=== PATIENT | male | born 1975 | race African-American/Black ===

== ENCOUNTER 2017-02-05 03:11 | Inpatient (IN) ==
[2017-02-05] MEDS ORDERED: ZOFRAN IV ONE (03:14)
[2017-02-05] MEDS ORDERED: NS 1,000 ML IV ONE ×2 (03:14→06:48)
[2017-02-05 03:38] LABS: BASO% 0.1 % (0.0-0.8); EOS# 0.01 X1000 (0.0-0.7); EOS% 0.1 % (0.0-10.0); HEMATOCRIT 35.5 % (42.0-52.0); HEMOGLOBIN 12.5 g/dL (14.0-18.0); LYMPH# 1.07 X1000 (1.2-3.4); LYMPH% 15.2 % (20.5-51.1); MANUAL DIFF NEEDED? NO; MCH 33.3 PG (27-31); MCHC 35.2 g/dL (33-37); MCV 94.7 FL (81-99); MONO% 19.9 % (1.7-9.3); MPV 9.6 FL (7.4-10.4); NEUT% 64.7 % (42.2-75.2); PLT 154 X1000 (130-400); RBC 3.75 XMIL (4.7-6.1)
--- NOTE | 2017-02-05 03:39 | PROVIDER DOCUMENTATION ---
HPI-Abdominal Pain/GI Problem - General Chief Complaint: General Adult Stated Complaint: n/v Time Seen by Provider: 02/05/17 03:12 Source: patient, EMS Allergies/Adverse Reactions: Patient Allergies Allergy/AdvReac Type Severity Reaction Status Date / Time No Known Allergies Allergy Verified 12/07/15 21:54 Home Medications: Home Medication List Medication Instructions Recorded Confirmed Last Taken Type No Home Medications 11/08/12 12/07/15 Unknown History - History of Present Illness-ABD Nature of Presenting Problems: pt states he has been having problems with abdominal pain and vomiting for a month and that it has been getting worse and he has been having a hard time keeping anything down. He is still urinating without dysuria or fevers. He last had a BM 2 days ago and at times it has been black. He has vomited some blood at times but not today. He states he had been drink about a pint of alcohol a day but has not been doing that recently. He does smoke and denies NSAID's. or pepto bismol Review of Systems - Adult - REVIEW OF SYSTEMS - ADULT Constitutional: denies: chills, fever Eyes: denies: discharge Ears, Nose, Mouth & Throat: denies: ear pain, sinus problem, throat pain Cardiovascular: denies: chest pain, palpitations, syncope Respiratory: denies: cough, shortness of breath Gastrointestinal: reports: see HPI Genitourinary: denies: dysuria, flank pain Musculoskeletal: denies: back pain Integumentary: denies: rash Neurological: denies: headache/migraines, numbness, paresthesia Psychiatric: reports: no symptoms reported Endocrine: reports: no symptoms reported Hematologic/Lymphatic: reports: no symptoms reported Allergic/Immunologic: reports: no symptoms reported All Other Systems: Reviewed and Negative Past History - Adult - PAST MEDICAL HISTORY-ADULT Review of Records: reports: Old Records Reviewed, Nursing Assessment Review, Medications Reviewed, Social history reviewed & non-contributory. Major Childhood Illnesses: reports: denies history Psychiatric: reports: depression, other (alcoholism ) - PRIOR SURGERIES/PROCEDURES Surgical/Procedure History: reports: none - IMMUNIZATION STATUS Childhood Immunizations: See Nurse Assessment Flu Vaccine: See Nurse Assessment - FAMILY HISTORY Family History: reviewed, not pertinent - SOCIAL HISTORY Smoking: less than 1 pack/day Alcohol Use Frequency: every day Living Situation: alone Physical Exam-General - PHYSICAL EXAM-ADULT Initial Vital Signs Reviewed: Yes - CONSTITUTIONAL General Appearance: appears well, alert, no apparent distress - EYES Eyes: PERRL/EOMI. negative: scleral icterus - HEAD, EARS, NOSE, MOUTH & THROAT HENMT: normocephalic/atraumatic - NECK Neck: non-tender, full range of motion, supple, normal inspection - RESPIRATORY Respiratory: chest non-tender, lungs clear, normal breath sounds, no pleuratic chest pain, no respiratory distress, no accessory muscle use - CARDIOVASCULAR Cardiovascular: regular rate, rhythm, no murmur - GASTROINTESTINAL (ABDOMEN) Abdominal Exam: normal bowel sounds, soft, no organomegaly, no pulsatile mass, abdominal bruit, tenderness (mild epigastric). negative: non tender - MUSCULOSKELETAL Back Exam: normal inspection, no CVA tenderness, no vertebral tenderness - SKIN Integumentary: normal color, normal turgor, warm/dry - NEUROLOGIC Neurologic: grossly normal, no motor/sensory deficits - PSYCHIATRIC Psych/Mental Status: normal mood/affect, normal thought content, normal thought process, oriented x 3 Progress - PLAN OF CARE/RESULTS Progress/Plan/Lab Results: Vital Signs - 8 hr 02/05/17 03:22 Temperature 97.8 F Pulse Rate 98 H Respiratory Rate 18 Blood Pressure 135/89 O2 Sat by Pulse Oximetry 100 Orders Category Date Time Status CBC WITH ELECTRONIC DIFF [HEME] Stat Lab 02/05/17 03:17 Results CMP [COMPREHENSIVE METABOLIC PANEL] [CHEM] Stat Lab 02/05/17 03:17 Received ETOH [ALCOHOL BLOOD] Stat Lab 02/05/17 03:17 Received LIPASE [CHEM] Stat Lab 02/05/17 03:17 Received MAGNESIUM [CHEM] Stat Lab 02/05/17 03:17 Received 0.9% Sodium Chloride Inj [Ns] 1,000 ml Med 02/05/17 03:14 Active IV 999 mls/hr Ondansetron [Zofran] Med 02/05/17 03:14 Discontinued 4 mg IV NOW ONE Result Diagrams: 02/05/17 03:17 02/05/17 03:17 Departure - Departure Date of Disposition Decision: 02/05/17 Time of Disposition Decision: 04:24 DIAGNOSIS: Alcoholic gastritis Qualifiers: Chronicity: acute Gastritis bleeding: without bleeding Qualified Code(s): K29.20 - Alcoholic gastritis without bleeding Alcohol withdrawal seizure Qualifiers: Complication of substance-induced condition: uncomplicated Qualified Code(s): F10.230 - Alcohol dependence with withdrawal, uncomplicated Disposition: ADMITTED INPATIENT 09 Certified Medical Emergency: Emergent Condition: Fair - Critical Care Note This patient required my direct & personal management of CC.: No
[2017-02-05 03:56] LABS: AGAP 24; ALBUMIN 3.8 g/dL (3.5-5.0); ALKALINE PHOSPHATASE 320 U/L (32-122); BUN 5 mg/dL (8-22); CALCIUM 9.7 mg/dL (8.8-10.2); CHLORIDE 84 mmol/L (98-107); COSMO 267; GOT 185 U/L (10-34); GPT 88 U/L (10-44); LIPASE 18 U/L (13-60); MAGNESIUM 1.5 mg/dL (1.5-2.7); POTASSIUM 2.9 mmol/L (3.5-5.1); SODIUM 133 mmol/L (136-145); TCO2 25 mmol/L (25-35); TOTAL BILIRUBIN 3.38 mg/dL (0.20-1.00); TOTAL PROTEIN 7.7 g/dL (6.3-8.3)
[2017-02-05] MEDS ORDERED: ATIVAN ONE (03:57)
[2017-02-05] MEDS ORDERED: ATIVAN IV ONE (04:01)
[2017-02-05] MEDS ORDERED: M.V.I.-12 10 ML, FOLIC ACID 1 MG, MAGNESIUM SULFATE 1 GM, THIAMINE 100 MG in NS 1,000 ML IV ONE (04:02)
[2017-02-05] MEDS ORDERED: SODIUM CHLORIDE 0.9% INJ ONE (04:08)
[2017-02-05] MEDS ORDERED: PROTONIX IV ONE (04:08)
[2017-02-05] MEDS ORDERED: ATIVAN IV PRN (04:35)
--- NOTE | 2017-02-05 05:34 | Diag Imaging Result Doc PS360 ---
EXAM: HEAD W/O CONTRAST HISTORY: seizure TECHNIQUE: COMPARISON: None. FINDINGS: No parenchymal hemorrhage. No epidural or subdural hematoma. No subarachnoid hemorrhage. No mass identified on this noncontrasted exam. No hydrocephalus. Questionable mild atrophy. There is opacification of both maxillary sinuses. IMPRESSION: No hemorrhage. Chronic bilateral maxillary sinusitis. A preliminary report was given at 4:59 AM Electronically signed by Benny Le 02/05/2017 5:31 AM
[2017-02-05] MEDS ORDERED: ZOFRAN IV PRN (06:48)
--- NOTE | 2017-02-05 07:03 | HISTORY AND PHYSICAL ---
PRIMARY CARE DOCTOR: None. HISTORY OF PRESENT ILLNESS: This is a 41-year-old male with unremarkable past medical history who came to the emergency department complaining of epigastric pain, nausea and vomiting. He is a chronic alcohol abuser. He reports that during the last 2 weeks he was having on and off vomiting 2-3 times per day and he noticed the last week some blood on it. Also, he complains of epigastric pain, heartburn type that was also coming on and off for the last 2 weeks as well. He reports no fever, no chills. No diarrhea or constipation. While he was here he admits that the last time he drank was 2 days ago on Sunday and in the ER he had a seizures so he was given 2 mg of Ativan and that condition is controlled now. Patient is alert and oriented. He is going to be admitted to the hospital for further evaluation and treatment. PAST MEDICAL HISTORY: Alcohol abuse. PAST SURGICAL HISTORY: Right arm fracture with when he was a kid. ALLERGIES: No known drug allergies. SOCIAL HISTORY: He reports drinking 1 pint of liquor daily and he smokes half a pack of cigarettes per day. Denies using any illicit drugs. FAMILY HISTORY: Breast cancer in mother and diabetes in brothers and sisters. REVIEW OF SYSTEMS: 11 systems were reviewed and all symptoms are related to H P. PHYSICAL EXAMINATION: VITALS: Temperature 97.8, heart rate 91, respiratory rate 17, blood pressure 134/91. O2 saturation 100% on room air. GENERAL: This is a 41-year-old male, lying in bed, in no acute distress. HEENT: Head is normocephalic, atraumatic. Anicteric sclerae and pale conjunctivae. Mucous membranes moist. NECK: Supple. No JVD noted. No carotid bruits. No lymphadenopathy. No thyromegaly. CARDIOVASCULAR: S1 and S2 heard. No murmurs, gallops, or rubs. Regular rate and rhythm. RESPIRATORY: Clear bilaterally to auscultation. No work of breathing or using accessory muscles. ABDOMEN: Soft. Mildly tender to palpation in the epigastric area. No signs of peritoneal irritation. Bowel sounds present. No organomegaly. EXTREMITIES: No clubbing, cyanosis, or edema. Peripheral pulses present in both legs. Patient reports numbness in both feet. NEUROLOGICAL: Patient alert oriented x3. Moves 4 extremities. Cranial nerves 2-12 grossly normal. LABORATORY DATA: White cell count 7.02, hemoglobin 12.2, hematocrit 35.5, platelets 154,000 with BMP remarkable for potassium 2.9, and glucose 153, total bilirubin 3.38, AST 185,000, ALT 88 with alkaline phosphatase of 320. ASSESSMENT: 1. Alcohol withdrawal. 2. This patient is being admitted to the hospital for alcohol withdrawal. He had 1 episode of seizure here in the hospital. He received Ativan and that condition was controlled. A CT scan of the head was checked and returned normal. At this time, we are going to continue with aggressive fluid resuscitation, thiamine and folate will be provided, and we are going to send this patient to the intensive care unit. 3. Epigastric pain. GI bleeding. Patient reports that during the last couple weeks he has been vomiting on and of and he noticed some blood on it occasionally. Hemoglobin 12.2, so I think this patient is really having chronic gastritis because of alcohol consumption. At this point, I want to start this patient on Protonix 40 mg IV b.i.d. and we are going to consult GI, and because of abnormal liver function tests we are going to do an ultrasound of the abdomen. We are going to consult GI. 1. Hypokalemia. Probably definitely secondary to continued vomiting for last 2 weeks. We are going to supplement that and will check BMP tomorrow. 2. Further recommendations to follow according to the clinical situation with the patient. cc: Kwame Smart MD
[2017-02-05] MEDS: POTASSIUM CHLORIDE 60 MEQ in NS 500 ML IV SCH ×2 (07:54→14:21)
[2017-02-05] MEDS ORDERED: THIAMINE 100 MG in NS 50 ML IV SCH (08:00)
[2017-02-05] MEDS: LIBRIUM PO SCH ×3 (09:04→17:10)
[2017-02-05] MEDS: PROTONIX IV SCH ×2 (09:05→20:57)
[2017-02-05] MEDS: SODIUM CHLORIDE 0.9% INJ SCH ×2 (09:05→20:57)
[2017-02-05] MEDS ORDERED: POTASSIUM CHLORIDE 40 MEQ/SWI 40 MEQ/100 ML IVPB IV ONE (09:18)
--- NOTE | 2017-02-05 10:06 | PROGRESS NOTE ---
DATE: 02/05/2017 SUBJECTIVE: He appears comfortable. He was sleepy. He is having visual hallucinations by his report, but does not seem to have a visible tremor in his jaw, in his hand. OBJECTIVE: Vital signs: Temperature 98.8 degrees, pulse 80, respirations 20, blood pressure 123/81. HEENT: Pupils are equal and round. Lungs: Lungs are clear in all lung cutler. Cardiovascular: Regular rhythm and rate without murmur or S3. Abdomen: Soft. Skin: Warm and dry. Weight 167 pounds. LABS: From today, white count 7020, hematocrit 35, platelet count 154,000. Chemistry: Sodium 133, potassium 3.9, chloride 84, bicarb 25, BUN 5. Magnesium was 1.5. We will supplement the potassium. CT of his head done this morning no hemorrhage. Chronic bilateral maxillary sinusitis. ASSESSMENT/PLAN: 1. A 41-year-old with unremarkable past medical history came to the emergency department with epigastric pain, nausea, vomiting, and chronic alcohol abuse. Drinks over a pint a day. The last 2 weeks he is having on and off vomiting 2-3 times a day. Complains of epigastric pain, heartburn, and stools were dark but not black. Here for abdominal pain. GI is consulted. Hematocrit and hemoglobin looked good. He is on a proton pump inhibitor. Will keep him on clear liquids. 2. Alcohol withdrawal. Go through delirium tremens. He is on thiamine and folate and will supplement his potassium. 3. Hypokalemia. Supplement potassium. Review orders. He is taking Librium 50 mg p.o. t.i.d. He is on Ativan p.r.n. 1-2 mg IV q. hour. Give multivitamin with thiamine and one thiamine every day 100 mg. We will supplement his potassium. Magnesium looked good. cc: Jose Lamar MD
[2017-02-05] MEDS: NS 1,000 ML IV SCH ×3 (10:41→23:19)
--- NOTE | 2017-02-05 11:26 | Diag Imaging Result Doc PS360 ---
EXAM: US ABDOMEN-COMPLETE HISTORY: alcohol abuse TECHNIQUE: COMPARISON: None. FINDINGS: The proximal and mid aorta are normal. The distal aorta is obscured. There is fatty infiltration of the liver. Normal right kidney. No hydronephrosis. The common bile duct measures 4 mm. Normal gallbladder. No stones. Spleen is not enlarged. Normal left kidney. No hydronephrosis. Normal pancreatic head and body. Pancreatic tail is obscured. The inferior vena cava is poorly seen. IMPRESSION: Fatty infiltration of the liver. Electronically signed by Benny Le 02/05/2017 11:24 AM
[2017-02-05] MEDS: CARAFATE LIQUID PO SCH ×3 (11:59→20:03)
[2017-02-05] MEDS: M.V.I.-12 10 ML, FOLIC ACID 1 MG, MAGNESIUM SULFATE 1 GM, THIAMINE 100 MG in NS 1,000 ML IV SCH (12:00)
[2017-02-05 13:41] LABS: IRON SATURATION 51 %; TIBC 218 ug/dL; TOTAL IRON 111 ug/dL (53-167); UNBOUND IRON 107 ug/dL (112-346)
--- NOTE | 2017-02-05 16:23 | CONSULTATION ---
DATE OF CONSULTATION: 02/05/2017 REQUESTING PHYSICIAN: Dr. Domingo Lamar. PRIMARY CARE DOCTOR: None. REASON FOR CONSULTATION: Jaundice, elevated liver enzymes and vomiting blood. HISTORY OF PRESENT ILLNESS: Mr. Sterling is a 41-year-old male who was admitted on 02/05/2017 with symptoms of abdominal pain and epigastrium pain, along with nausea, vomiting, and vomiting blood yesterday once after eating his meal. According to the patient, he has been drinking heavily since age 15. He drinks about a half a pint of hard liquor almost every day. According to him, he has never had any liver issues before this time. He denies any previous history of any gallbladder problems. He denies any previous history of peptic ulcer disease. According to the patient, he has been having epigastric pain on and off for the last 2 weeks, along with intermittent nausea, vomiting. According to him, he ate his dinner yesterday, the day before admission and threw it right back up and on examining the vomitus, he saw some red blood mixed with the food. Since being in the hospital, he has been put on IV fluids, IV PPIs, IV multivitamin and oral Librax. He has not had any vomiting since admission. His hematocrit also was stable at 35%. He had last bowel movement 2 days ago which was dark in color per the patient. The patient has never had EGD done the past. He also admits that his last drink was 2 days ago on Sunday and in the ER he had a seizure, so he was given Ativan and this controlled. PAST MEDICAL HISTORY: Alcohol abuse. PAST SURGICAL HISTORY: Right arm fracture when he was a kid. ALLERGIES: No known drug allergies. SOCIAL HISTORY: He reports drinking 1 pint of liquor daily. He drinks hard liquor most days of the week. He smokes half a pack of cigarettes per day. No history of illicit drugs. 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 FAMILY HISTORY: No history of GI disorder in the family. He has history of breast cancer in mother and diabetes in brothers and sisters. REVIEW OF SYSTEMS: Denies any current fevers, rigors, chills, chest pain, shortness of breath, dyspnea. Denies any genitourinary complaints. Does have history of epigastric pain, nausea, vomiting and yellow urine and dark stools and vomiting blood. He has had a seizure in the ER which is controlled with medication. MEDICATIONS IN THE HOSPITAL: 1. Librax 50 mg p.o. t.i.d. 2. Potassium chloride. 3. Ativan 1-2 mg IV q.1 hour as needed. 4. IV fluids 150 mL/hour. 5. Zofran 4 mg IV every 4 hours as needed. 6. Protonix 40 mg IV b.i.d. 7. Thiamine 100 mg IV once daily. 8. Currently on clear liquid diet. PHYSICAL EXAMINATION: Vital signs: Temperature 98.8, pulse rate of 81, respiratory rate 20, blood pressure 123/81, saturating 90% on room air. Body weight of 167 pounds 2 ounces. BMI of 24 kg/m2. General Appearance: Moderately built, moderately nourished, lying in bed, in no acute distress. HEENT: Mild pallor. Icteric sclerae. Pupils equal, react to light. Neck: Supple. Chest: Decreased breath sounds. Cardiac: Regular rate and rhythm. No murmur. Abdomen: Mild discomfort periumbilical region. No rebound or guarding. Bowel sounds present. Extremities: No cyanosis, clubbing, edema. Neurologic: She is alert, awake, oriented. LABORATORY: Hemoglobin and hematocrit is 12.5 and 35.5, white count of 7.2, platelet count of 154,000, MCV of 94.7. Sodium 130, potassium 2.9, chloride of 84, bicarb 20, anion gap of 24, BUN of 5, creatinine 0.6, glucose of 153, calcium 9.7, magnesium 1.5, total bilirubin is 3.38. AST 185, ALT 88, alkaline phosphatase 320, total protein 7.7. Albumin of 3.8, lipase of 18. Plasma alcohol level 0. IMAGING: Head CT was done on 02/05/2017 which showed no hemorrhage. Chronic bilateral maxillary sinusitis. ALLERGIES: No known drug allergies. IMPRESSION AND PLAN: 1. Abdominal pain. Occasional nausea, vomiting, vomiting blood once at home. 2. Chronic alcohol abuse resulting in alcohol withdrawal seizure in the ER and currently on Ativan and Librax. 3. Watch for delirium tremens. 4. Elevated liver enzymes. Suspecting alcoholic liver disease. 5. Tobacco abuse. RECOMMENDATIONS: 1. We will continue patient on IV fluids, IV PPIs, IV antiemetics and IV multivitamin. We will start him on Carafate 1 g 6 hours liquid. 2. We will obtain ultrasound of the abdomen. 3. We will perform chronic liver disease workup and rule out possibility of acute hepatitis versus autoimmune disease. 4. We will schedule him for EGD tomorrow under anesthesia with Dr. Sullivan. The risks, benefits, indications of EGD were discussed with the patient and he understood. 5. We need to keep a close eye on the patient for delirium tremens. He has been a heavy alcohol drinker for many years. I have counseled the patient to quit drinking completely. I also counseled the patient to quit smoking completely. 6. Mild anemia. We will need to watch for now. 7. Further recommendations to follow. cc: MD Kwame Whiting MD MTDD
[2017-02-06] MEDS: CARAFATE LIQUID PO SCH ×4 (02:39→20:47)
[2017-02-06 05:10] LABS: MANUAL DIFF NEEDED? NO
[2017-02-06 05:18] LABS: BASO% 0.2 % (0.0-0.8); EOS# 0.05 X1000 (0.0-0.7); EOS% 1.2 % (0.0-10.0); HEMATOCRIT 30.9 % (42.0-52.0); HEMOGLOBIN 10.5 g/dL (14.0-18.0); IMM GRAN# 0.02 X1000 (0.0-0.04); IMM GRAN% 0.5 % (0.0-0.5); LYMPH# 0.96 X1000 (1.2-3.4); LYMPH% 23.3 % (20.5-51.1); MCH 32.3 PG (27-31); MCV 95.1 FL (81-99); MONO# 0.68 X1000 (0.11-0.59); MONO% 16.5 % (1.7-9.3); MPV 9.7 FL (7.4-10.4); NEUT% 58.3 % (42.2-75.2); PLT 137 X1000 (130-400); RBC 3.25 XMIL (4.7-6.1)
[2017-02-06 05:47] LABS: AGAP 14; ALBUMIN 2.9 g/dL (3.5-5.0); ALKALINE PHOSPHATASE 240 U/L (32-122); BUN 2 mg/dL (8-22); CALCIUM 8.1 mg/dL (8.8-10.2); CHLORIDE 100 mmol/L (98-107); COSMO 272; GOT 151 U/L (10-34); GPT 71 U/L (10-44); POTASSIUM 3.5 mmol/L (3.5-5.1); SODIUM 138 mmol/L (136-145); TCO2 24 mmol/L (25-35); TOTAL BILIRUBIN 2.98 mg/dL (0.20-1.00); TOTAL PROTEIN 5.9 g/dL (6.3-8.3)
[2017-02-06] MEDS: NS 1,000 ML IV SCH ×2 (06:10→18:04)
--- NOTE | 2017-02-06 07:23 | PROGRESS NOTE ---
DATE: 02/06/2017 SUBJECTIVE: Mr. Sterling had a pretty good night, but the nurse did state when he tried to get up, his legs were so weak, he fell down to his knees. He has no tremor. He states he has not had any more visual hallucinations. OBJECTIVE: Vital Signs: Temp 98.4 degrees, pulse 76, respirations 20, blood pressure 118/75. HEENT: Pupils are equal, round. Lungs: Clear in all lung cutler. Cardiovascular: Regular rhythm and rate, without murmur or S3. Abdomen: Soft. Skin: Warm and dry. Urine output is 8 L. Good urine output. LABORATORY DATA: Reviewed from this morning. White count 4120, hematocrit 30, platelet count 137,000. Chemistries: Sodium 138, potassium 3.5, chloride 100, bicarb 24, BUN 2, creatinine 0.5. Alkaline phosphate 240. His ALT has come down from 80 to 71, and AST from 185 to 151. ASSESSMENT AND PLAN: 1. Abdominal pain, occasional nausea and vomiting, and vomiting of blood at home. Continue intravenous fluids, multivitamin. He is on Carafate 1 gram every 6 hours and his proton pump inhibitor. 2. Will obtain an ultrasound of the abdomen, and will also check a hepatitis profile. 3. Suspect alcoholic hepatitis. Liver enzymes are coming down. 4. Alcohol withdrawal, delirium tremens. It seems to be getting a little better. 5. Generalized weakness. Will initiate physical therapy. 6. Mild anemia. Watch his hematocrit and hemoglobin. Will space out his Librium so he can have some at night. cc: Jose Lamar MD
[2017-02-06] MEDS ORDERED: ATIVAN IV ONE (08:24)
[2017-02-06] MEDS: THIAMINE 100 MG in NS 50 ML IV SCH (08:34)
[2017-02-06] MEDS: LIBRIUM PO SCH ×3 (08:34→20:47)
[2017-02-06] MEDS: SODIUM CHLORIDE 0.9% INJ SCH ×2 (08:34→21:42)
[2017-02-06] MEDS: PROTONIX IV SCH ×2 (08:34→21:42)
[2017-02-06] MEDS: M.V.I.-12 10 ML, FOLIC ACID 1 MG, MAGNESIUM SULFATE 1 GM, THIAMINE 100 MG in NS 1,000 ML IV SCH (09:29)
[2017-02-06 10:59] LABS: HEPATITIS PROFILE ACUTE SEE COMMENTS
[2017-02-06] MEDS: PHENOBARBITAL IV PRN ×2 (11:52→18:29)
[2017-02-06] MEDS: ATIVAN IV PRN ×9 (11:52→23:36)
[2017-02-06] MEDS ORDERED: DIPRIVAN 1% ONE ×2 (12:27→12:42)
[2017-02-06] MEDS ORDERED: XYLOCAINE-MPF 2% ONE (12:35)
--- NOTE | 2017-02-06 15:33 | OPERATIVE NOTE ---
PROCEDURE DATE: 02/06/2017 PROCEDURE: Esophagogastroduodenoscopy. PREOPERATIVE DIAGNOSES: 1. Nausea. 2. Vomiting. 3. Questionable coffee-grounds emesis. POSTOP DIAGNOSES: 1. Erosive antral gastritis. 2. Duodenitis. 3. No Cesia-Peña tear. 4. No esophageal varices. 5. No fresh or old blood seen in the stomach. DESCRIPTION OF PROCEDURE: After informed consent and adequate intravenous sedation by Anesthesia, the scope introduced in esophagus. The patient does not have any esophageal varices or Cesia- Peña tear. Cardia, fundus, body normal. Antrum showed antral gastritis with a few superficial erosions. No bleeding, however. Duodenum also shows some erythema suggestive of duodenitis. No bleeding, however. The scope is withdrawn. Retroflex view normal. The scope is then withdrawn. The patient tolerated the procedure well without any immediate complications. cc: Khurram Sullivan MD
[2017-02-06] MEDS ORDERED: ATIVAN IM PRN (18:21)
[2017-02-06 22:01] LABS: URINE CULTURE NEEDED? NO; URINE MICRO REVIEW NEEDED? NO; URINE SOURCE CATH
[2017-02-06 22:04] LABS: BILIRUBIN URINE NEGATIVE (NEGATIVE); BLOOD URINE NEGATIVE (NEGATIVE); COLOR YELLOW; GLUCOSE URINE NEGATIVE (NEGATIVE); LEUKOCYTES URINE NEGATIVE (NEGATIVE); NITRITE URINE NEGATIVE (NEGATIVE); PROTEIN URINE NEGATIVE (NEGATIVE); SP GRAVITY URINE 1.005; TURBIDITY URINE CLEAR (CLEAR); UROBILINOGEN URINE 3 mg/dL (NORMAL)
[2017-02-06 22:06] LABS: UR EPITHELIAL CELLS <10 /HPF (<10); URINE BACTERIA NEGATIVE /HPF; URINE RBC <10 /HPF (<10); URINE WBC <10 /HPF (<10)
[2017-02-07] MEDS: PHENOBARBITAL IV PRN ×3 (00:06→14:50)
[2017-02-07] MEDS: ATIVAN IV PRN ×10 (00:37→22:17)
[2017-02-07] MEDS: NS 1,000 ML IV SCH ×4 (00:43→23:06)
[2017-02-07] MEDS ORDERED: LOPRESSOR IV ONE (00:44)
[2017-02-07] MEDS: LIBRIUM PO SCH ×5 (02:30→20:20)
[2017-02-07] MEDS: CARAFATE LIQUID PO SCH ×5 (02:31→20:20)
[2017-02-07 05:33] LABS: MANUAL DIFF NEEDED? NO
[2017-02-07 05:47] LABS: BASO% 0.2 % (0.0-0.8); EOS# 0.05 X1000 (0.0-0.7); EOS% 1.1 % (0.0-10.0); HEMATOCRIT 31.9 % (42.0-52.0); HEMOGLOBIN 10.9 g/dL (14.0-18.0); LYMPH# 0.81 X1000 (1.2-3.4); LYMPH% 17.6 % (20.5-51.1); MCH 32.2 PG (27-31); MCHC 34.2 g/dL (33-37); MCV 94.4 FL (81-99); MONO# 0.84 X1000 (0.11-0.59); MONO% 18.3 % (1.7-9.3); NEUT% 62.8 % (42.2-75.2); PLT 150 X1000 (130-400); RBC 3.38 XMIL (4.7-6.1)
[2017-02-07 06:05] LABS: AGAP 12; BUN 1 mg/dL (8-22); CALCIUM 8.4 mg/dL (8.8-10.2); CHLORIDE 98 mmol/L (98-107); COSMO 261; MAGNESIUM 1.5 mg/dL (1.5-2.7); POTASSIUM 3.2 mmol/L (3.5-5.1); SODIUM 133 mmol/L (136-145); TCO2 23 mmol/L (25-35)
--- NOTE | 2017-02-07 08:05 | PROGRESS NOTE ---
DATE: 02/07/2017 SUBJECTIVE: He is in 4 point restraints. Went into delirium tremens. Very agitated. Pulled out his IV. He is calm at the present time, using IV Ativan and phenobarbital. Breathing comfortably. PHYSICAL EXAMINATION: Vital Signs: Temperature 98.9 degrees, pulse 82, respirations 26, blood pressure 129/84. Lungs: Clear in all lung cutler. Cardiovascular Examination: Regular rhythm and rate without murmur or S3. Abdomen: Soft. Skin: Is warm and dry. Is and Os: Urine output is 8 L. LABORATORY DATA: White count 4600, hematocrit 31, platelet count 150,000. Chemistries look good. Sodium 133, potassium 3.2, chloride 98, BUN 1, creatinine 1.4, magnesium 1.5. ASSESSMENT AND PLAN: 1. Abdominal pain, occasional nausea and vomiting at home. He is on the Carafate and a proton pump inhibitor. 2. Alcohol withdrawal and has deteriorated to delirium tremens, requiring 4 point restraints. Continue benzodiazepines and phenobarbital. 3. Alcoholic hepatitis. Liver improving. 4. Metabolic encephalopathy secondary to delirium tremens. 5. Reviewed his orders. I do not see any change at this point. He is on a multivitamin. He is getting thiamine every day. Erosive antral gastritis, duodenitis. No Cesia-Peña tear. No esophageal varices. cc: Jose Lamar MD
[2017-02-07] MEDS: M.V.I.-12 10 ML, FOLIC ACID 1 MG, MAGNESIUM SULFATE 1 GM, THIAMINE 100 MG in NS 1,000 ML IV SCH (08:11)
[2017-02-07] MEDS: THIAMINE 100 MG in NS 50 ML IV SCH (08:11)
[2017-02-07] MEDS: SODIUM CHLORIDE 0.9% INJ SCH ×2 (08:19→20:07)
[2017-02-07] MEDS: PROTONIX IV SCH ×2 (08:19→20:07)
--- NOTE | 2017-02-07 22:07 | PROGRESS NOTE ---
DATE: 02/07/2017 SUBJECTIVE: The patient is resting in bed. He is in 4 point restraints. He has been agitated and going through delirium tremens. He is on IV Ativan and phenobarbital per the primary care team. When I saw him, he was more sober. He was able to answer some questions. He denies any nausea, vomiting or vomiting blood. He denies any fevers, rigors or chills. OBJECTIVE: Vital signs: Temperature of 99.3 degrees, pulse of 90, respiratory rate 20, blood pressure 116/83, saturating 97% on room air. Body weight of 174 pounds 12.8 ounces, BMI 25 kg/m2. General Appearance: Moderately built, moderately nourished, lying in bed, in no acute distress. He is in 4-point restraints. HEENT: Pale. No icterus. Neck: Supple. Abdomen: Abdomen is protuberant, soft, nontender. Bowel sounds heard. Extremities: No cyanosis, clubbing. He is in restraints. Neurologic: He was more sober when I saw him. He was able to answer some simple questions. LABORATORY: Hemoglobin and hematocrit is 10.9 and 31.9. White count of 4.6, platelet count of 150,000, MCV of 94.4. Sodium of 133, potassium 3.2, chloride 90, anion gap 12, BUN of 1, creatinine 0.4. Glucose of 77, calcium is 8.4, total bilirubin is 2.98. AST 151, ALT 71. Alkaline phosphatase 240. Total protein 5.9, albumin of 2.9. Alpha 1 antitrypsin level of 158 which is normal. Lipase of 18. DARIANA is negative. Acute hepatitis panel is nonreactive. IMPRESSION AND PLAN: 1. Delirium tremens. He is currently on IV Ativan, IV phenobarbital and oral Librium. 2. Alcoholism. He is continuing on multivitamin and banana bag. 3. Erosive gastritis, duodenitis. We will continue on proton pump inhibitor. His nausea, vomiting has resolved. 4. Anemia. We will start him on Iron C b.i.d. once he is able to take orally. 5. Alcoholic hepatitis. We will continue to watch his liver enzymes. 6. The above plan of care was discussed with the patient's nurse and all questions answered. cc: MD Zenon Whiting MD [facility]
[2017-02-08] MEDS: PHENOBARBITAL IV PRN (00:58)
[2017-02-08] MEDS: ATIVAN IV PRN ×2 (01:52→02:57)
[2017-02-08] MEDS: CARAFATE LIQUID PO SCH ×4 (02:13→20:28)
[2017-02-08] MEDS: LIBRIUM PO SCH ×4 (02:16→20:28)
[2017-02-08 05:19] LABS: ALBUMIN 2.9 g/dL (3.5-5.0); DIRECT BILIRUBIN 1.7 mg/dL (0.00-0.20); TOTAL BILIRUBIN 2.46 mg/dL (0.20-1.00)
[2017-02-08] MEDS: NS 1,000 ML IV SCH ×3 (06:12→21:16)
--- NOTE | 2017-02-08 07:34 | PROGRESS NOTE ---
DATE: 02/08/2017 SUBJECTIVE: He is out of restraints. He is oriented, calm, sleeping, rested well last night, very grateful for his care, according to the nurses. OBJECTIVE: Vital Signs: Temp 97.2 degrees, pulse 88, respirations 29, blood pressure 139/97. HEENT: Pupils are equal, round. Lungs: Clear in all lung cutler. Cardiovascular: Regular rhythm and rate without murmur or S3. Abdomen: Soft. Skin: Warm and dry. Urine output: Almost 4 L. ASSESSMENT AND PLAN: Alcohol withdrawal, alcoholic hepatitis, showing good improvement. Coming out of delirium tremens. He does have erosive gastritis and duodenitis, and continues proton pump inhibitors. Blood count is stable. Making progress. Advance his diet. Start getting him out of bed, and then discuss with him, what are his plans. Encourage alcohol rehab. He had some potassium supplemented yesterday. Liver enzymes and transaminases are coming down well. cc: Jose Lamar MD
[2017-02-08] MEDS ORDERED: NS 1,000 ML IV SCH (08:08)
[2017-02-08] MEDS: SODIUM CHLORIDE 0.9% INJ SCH ×2 (09:11→21:16)
[2017-02-08] MEDS: M.V.I.-12 10 ML, FOLIC ACID 1 MG, MAGNESIUM SULFATE 1 GM, THIAMINE 100 MG in NS 1,000 ML IV SCH (09:16)
[2017-02-08] MEDS: PROTONIX IV SCH ×2 (09:16→21:17)
[2017-02-08] MEDS: THIAMINE 100 MG in NS 50 ML IV SCH (09:17)
--- NOTE | 2017-02-08 13:39 | PROGRESS NOTE ---
DATE: 02/08/2017 SUBJECTIVE: He is resting in bed. He is more awake and alert. He is off restraints. He is able to answer questions. He denies any fevers, rigors, chills. Denies any nausea or vomiting or vomiting blood. Denies any blood in the stools. His last bowel movement was yesterday which was liquid brown. OBJECTIVE: Vital signs: Temperature 97.6, pulse of 80, respiratory 23, respiratory blood pressure 143/99, saturating 98% on room air. Body weight of 171 pounds 3.2 ounces. General: He moderately nourished, lying in bed, in no acute distress. HEENT: Mild pallor. Mild icterus. Neck is supple. Abdomen is protuberant, soft, nontender. Bowel sounds. No rebound or guarding. Extremities: No cyanosis, clubbing, and edema. Neurologic: He is alert and awake. LABORATORY DATA: His hemoglobin and hematocrit is 10.9 and 31.9 from yesterday. His platelet count of 150,000 from yesterday. His labs from today showed total bilirubin of 2.46, direct of 1.7. AST 100. ALT 54. Alkaline phosphatase 222. Total protein 6. Albumin of 2.9. Lipase of 18. Alpha 1 antitrypsin level was normal. His DARIANA is negative and hepatitis panel is nonreactive. IMPRESSION AND PLAN: 1. Delirium tremens. He is improved. He continues on IV benzodiazepines per the primary team. 2. Alcoholism. Will continue on multivitamin once daily. 3. Erosive gastritis and duodenitis. He will continue on PPIs once daily for 6- 8 weeks, and we will wean it down to Zantac 1 g p.o. b.i.d. 4. Anemia. Will continue Iron C b.i.d. 5. Alcoholic hepatitis. We will follow up his cardiac enzymes. It may take about 6-12 weeks to normalize. The patient is counseled to have strict abstinence from alcohol. 6. Gastrointestinal prophylaxis as above. 7. Will be resuming his regular diet. The patient most likely will be able to move out of the ICU and may be able to go home maybe tomorrow or over the weekend. cc: Tr Olivas MD [facility]
[2017-02-08 16:14] LABS: EOS# 0.05 X1000 (0.0-0.7); HEMATOCRIT 33.3 % (42.0-52.0); HEMOGLOBIN 11.4 g/dL (14.0-18.0); IMM GRAN# 0.02 X1000 (0.0-0.04); IMM GRAN% 0.4 % (0.0-0.5); LYMPH# 0.81 X1000 (1.2-3.4); LYMPH% 16.7 % (20.5-51.1); MANUAL DIFF NEEDED? NO; MCH 32.2 PG (27-31); MCHC 34.2 g/dL (33-37); MCV 94.1 FL (81-99); MONO% 20.7 % (1.7-9.3); MPV 9.5 FL (7.4-10.4); NEUT% 61.2 % (42.2-75.2); PLT 171 X1000 (130-400); RBC 3.54 XMIL (4.7-6.1)
[2017-02-08 16:17] LABS: INR 1.4; PTT HEPARIN PROTOCOL 31.5 Seconds
[2017-02-08 16:30] LABS: AGAP 18; ALBUMIN 2.8 g/dL (3.5-5.0); ALKALINE PHOSPHATASE 229 U/L (32-122); BUN 3 mg/dL (8-22); CALCIUM 8.2 mg/dL (8.8-10.2); CHLORIDE 98 mmol/L (98-107); COSMO 267; GOT 116 U/L (10-34); GPT 57 U/L (10-44); SODIUM 135 mmol/L (136-145); TCO2 19 mmol/L (25-35); TOTAL BILIRUBIN 2.06 mg/dL (0.20-1.00); TOTAL PROTEIN 5.7 g/dL (6.3-8.3)
[2017-02-09] MEDS: CARAFATE LIQUID PO SCH ×4 (02:09→20:15)
[2017-02-09] MEDS: LIBRIUM PO SCH ×5 (02:09→20:15)
--- NOTE | 2017-02-09 07:22 | PROGRESS NOTE ---
DATE: 02/09/2017 SUBJECTIVE: He had a good night, resting comfortably. He is pretty weak and puny, so we need to work on his strength and walking. I think he can move to the regular floor. OBJECTIVE: Vital signs: Temperature 98.2 degrees, pulse 82, respirations 24, blood pressure 105/67. Pupils are equal and round. CVP less than 6 cm. Lungs: Clear in all lung cutler. Cardiovascular: Regular rhythm and rate, without murmur or S3. Abdomen: Soft. Skin: Warm and dry. LABORATORY STUDIES: Urine output 1700 mL. Labs reviewed from yesterday. Hematocrit stable at 33. Chemistries: Sodium 135, potassium 3.0, chloride 98, BUN 3, creatinine 0.5. Transaminases are coming down slowly. ASSESSMENT AND PLAN: 1. Delirium tremens, improved. Continue benzodiazepines as needed. Switch him to p.o. Librium. 2. Alcoholism. Continue multivitamin and thiamine and folate supplement. 3. Erosive gastritis and duodenitis. He is to continue his PPIs and wean it down to Zantac 1 g b.i.d. 4. Anemia. Continue iron with vitamin C b.i.d. 5. Alcoholic hepatitis. Liver enzymes may take several weeks to normalize. Will move him to the floor. Continue physical therapy. Encourage p.o. intake. Discuss discharge plans. Strongly encourage alcohol rehab. cc: Jose Lamar MD
[2017-02-09] MEDS: PROTONIX IV SCH ×2 (08:19→20:15)
[2017-02-09] MEDS: THIAMINE 100 MG in NS 50 ML IV SCH (08:19)
[2017-02-09] MEDS: M.V.I.-12 10 ML, FOLIC ACID 1 MG, MAGNESIUM SULFATE 1 GM, THIAMINE 100 MG in NS 1,000 ML IV SCH (11:01)
[2017-02-09] MEDS: SODIUM CHLORIDE 0.9% INJ SCH (20:19)
[2017-02-10] MEDS: CARAFATE LIQUID PO SCH ×4 (02:19→22:40)
[2017-02-10] MEDS: LIBRIUM PO SCH ×3 (02:19→15:08)
[2017-02-10] MEDS: NS 1,000 ML IV SCH (06:18)
[2017-02-10] MEDS: THIAMINE 100 MG in NS 50 ML IV SCH (09:56)
[2017-02-10] MEDS: M.V.I.-12 10 ML, FOLIC ACID 1 MG, MAGNESIUM SULFATE 1 GM, THIAMINE 100 MG in NS 1,000 ML IV SCH (10:00)
[2017-02-10] MEDS: SODIUM CHLORIDE 0.9% INJ SCH ×2 (10:00→22:40)
[2017-02-10] MEDS: PROTONIX IV SCH ×2 (10:00→22:40)
[2017-02-10] MEDS ORDERED: TYLENOL PO PRN (12:31)
--- NOTE | 2017-02-10 14:35 | PROGRESS NOTE ---
DATE: 02/10/2017 SUBJECTIVE: He is feeling better. He is still pretty weak and puny. OBJECTIVE: VITAL SIGNS: Temperature 97.9; pulse 78; respirations 20; blood pressure 127/86. HEENT: Pupils are equal and round. LUNGS: Clear in all lung cutler. CARDIOVASCULAR: Regular rhythm and rate, without murmur or S3. ABDOMEN: Soft. SKIN: Warm and dry. URINE OUTPUT: Urine output is 2700 mL. LABORATORY: Sodium 135, potassium 3.0, chloride 98, BUN 3, creatinine 0.5. Liver enzymes seem to be coming down. Alpha-1 antitrypsin was 150, so normal range. Hepatitis panel nonreactive, the B surface, B core, hepatitis C and hepatitis A. ASSESSMENT AND PLAN: 1. Alcohol withdrawal. Delirium tremens. Doing much better. He is still pretty weak. Continue physical therapy. 2. He does have erosive gastritis and duodenitis. We are still giving him thiamine. Will supplement his potassium. His magnesium looked okay. I will give him supplemental potassium with IV potassium. cc: Jose Lamar MD
[2017-02-10] MEDS: NS + KCL 40 MEQ 1,000 ML IV SCH (15:06)
[2017-02-10] MEDS ORDERED: LIBRIUM PO PRN (17:30)
[2017-02-10] MEDS: KLOR-CON PO SCH (22:40)
[2017-02-11] MEDS: CARAFATE LIQUID PO SCH ×4 (03:03→22:27)
[2017-02-11] MEDS: NS + KCL 40 MEQ 1,000 ML IV SCH ×3 (03:03→18:23)
[2017-02-11] MEDS: PROTONIX IV SCH ×2 (11:41→22:27)
[2017-02-11] MEDS: KLOR-CON PO SCH ×2 (11:41→22:27)
[2017-02-11] MEDS: SODIUM CHLORIDE 0.9% INJ SCH ×2 (11:41→22:27)
[2017-02-11] MEDS: THIAMINE 100 MG in NS 50 ML IV SCH (14:23)
[2017-02-11] MEDS: M.V.I.-12 10 ML, FOLIC ACID 1 MG, MAGNESIUM SULFATE 1 GM, THIAMINE 100 MG in NS 1,000 ML IV SCH (14:23)
--- NOTE | 2017-02-11 19:38 | PROGRESS NOTE ---
DATE: 02/11/2017 OBJECTIVE: General: He is feeling better. Sitting up at the edge of bed. His skin is a little stronger. He is eating a little better. Talked about maybe going home tomorrow. Vital signs: Temperature 98.3 degrees, pulse 90, respirations 20, blood pressure 134/81. Lungs: Are clear in all lung cutler. Cardiovascular: Regular rhythm and rate without murmur or S3. Abdomen: Soft. Skin: Warm and dry. : Urine output 2000 L. LABORATORY: Reviewed the 3rd, unremarkable except for hypokalemia. ASSESSMENT/PLAN: Alcohol withdrawal. Delirium tremens. This is resolving. He is left very weak, deconditioning. Continue his physical therapy. The liver appears to be getting better. We will check liver enzymes again tomorrow. Physical therapy to help social service to see about possibilities for rehab. He does have gastritis and duodenitis. Aware of this. I will put him on some potassium p.o. which he is already on twice a day. We will check his liver function and electrolytes again in the morning. cc: Jose Lamar MD
[2017-02-12] MEDS: CARAFATE LIQUID PO SCH ×4 (02:40→23:32)
[2017-02-12] MEDS: NS + KCL 40 MEQ 1,000 ML IV SCH ×2 (02:40→15:47)
[2017-02-12 06:14] LABS: AGAP 10; ALBUMIN 2.5 g/dL (3.5-5.0); ALKALINE PHOSPHATASE 213 U/L (32-122); BUN 3 mg/dL (8-22); CALCIUM 8.8 mg/dL (8.8-10.2); CHLORIDE 107 mmol/L (98-107); COSMO 276; GOT 103 U/L (10-34); GPT 53 U/L (10-44); MAGNESIUM 1.7 mg/dL (1.5-2.7); SODIUM 140 mmol/L (136-145); TCO2 23 mmol/L (25-35); TOTAL BILIRUBIN 1.04 mg/dL (0.20-1.00); TOTAL PROTEIN 5.5 g/dL (6.3-8.3)
[2017-02-12] MEDS: M.V.I.-12 10 ML, FOLIC ACID 1 MG, MAGNESIUM SULFATE 1 GM, THIAMINE 100 MG in NS 1,000 ML IV SCH (09:20)
[2017-02-12] MEDS: KLOR-CON PO SCH ×2 (09:20→22:25)
[2017-02-12] MEDS: THIAMINE 100 MG in NS 50 ML IV SCH (09:20)
[2017-02-12] MEDS: SODIUM CHLORIDE 0.9% INJ SCH (09:21)
[2017-02-12] MEDS: PROTONIX IV SCH ×2 (09:21→22:25)
--- NOTE | 2017-02-12 09:33 | PROGRESS NOTE ---
DATE: 02/12/2017 SUBJECTIVE: He does feel better. He is still real weak. Not having anymore hallucination. He is oriented x3. Very pleasant. We had talked this week about what he is going to do and what to pursue, so I will ask social workers to maybe give him some options as far as rehab. Continue physical therapy. Hopefully, we are hoping that he is close to getting out of here, but I do want him stronger before he leaves. He is eating better. OBJECTIVE: Vital Signs: Temperature 98.5 degrees, pulse 82, respirations 16. Blood pressure 143/87. Lungs: Clear in all lung cutlre. Cardiovascular: Regular rhythm and rate without murmur or S3. Abdomen: Unremarkable. His urine output was almost 6 L. LAB: Reviewed from the 3rd. Chemistries from this morning are sodium 140, potassium 5.0, chloride 107. BUN 3, creatinine 0.4. Liver functions are slowly coming down, transaminases, and bilirubin. Albumin 2.5. ASSESSMENT AND PLAN: 1. Alcohol withdrawal with delirium tremens, prolonged course. Has improved. Left with the general weakness and deconditioning. 2. He has had alcoholic hepatitis and liver enzymes are improving. Will continue physical therapy. I will discontinue his Maloney catheter. We will ask social service to help look for options of pursuing rehab. I do not detect any suicidal ideation. cc: Jose Lamar MD
[2017-02-12] MEDS: LACTULOSE PO SCH ×2 (11:19→22:25)
--- NOTE | 2017-02-12 11:35 | PROGRESS NOTE ---
DATE: 02/12/2017 SUBJECTIVE: Patient currently is resting in bed. He denies any new complaints. He is getting stronger. He was able to eat better this morning. He had a hard brown stool this morning. Denies any fever, rigors, or chills. OBJECTIVE: Vital Signs: Temperature 98.5, pulse rate of 82, respiratory rate 16, blood pressure 140/87, saturating 100% percent on room air. General Appearance: Moderately built, moderately nourished, lying in bed, in no acute distress. HEENT: Mild pallor. No icterus. Neck: Supple. Abdomen: Soft, nontender, nondistended. Bowel sounds present. No guarding or rebound. Extremities: No cyanosis, clubbing, edema. Neurologic: He is alert, awake, and oriented. Labs: Hemoglobin and hematocrit are 11.4 and 33.3, white count of 4.2, platelets of 171,000, MCV of 94.1. PT of 15, INR of 1.4, PTT of 30.5. Sodium 140, potassium 5, chloride 107, bicarb 23, anion gap of 10, BUN of 3, creatinine 0.4, glucose of 103, calcium is 8.8, magnesium 1.7. Total bilirubin is 1.04. AST 103, ALT 53, alkaline phosphatase 213, total protein 5.5, albumin of 2.5. Alpha I antitrypsin level is 158 which is normal. Cytoplasm 27 which is normal. DARIANA is negative. Acute hepatitis panel is negative. IMPRESSION/PLAN: 1. Alcoholic liver disease which is improving. Continue supportive treatment. 2. Alcohol withdrawal with delirium tremens. He is improving. He does have deconditioning and generalized weakness. He will continue with physical therapy. 3. Constipation. We will start him on lactulose 30 mL twice a day. 4. He will continue on multivitamin once a day. 5. We will keep on gastrointestinal prophylaxis with proton pump inhibitors. 6. The patient was again counseled to quit alcohol completely. 7. We will follow up with the hemochromatosis lab, which is currently pending. 8. Anemia. We will continue to watch for now. We will give him a multivitamin. I will start him on Iron C twice a day. 9. Further recommendations pending hospital course. cc: MD Zenon Whiting MD
[2017-02-13] MEDS: CARAFATE LIQUID PO SCH ×4 (02:21→22:37)
[2017-02-13] MEDS: M.V.I.-12 10 ML, FOLIC ACID 1 MG, MAGNESIUM SULFATE 1 GM, THIAMINE 100 MG in NS 1,000 ML IV SCH ×2 (05:36→09:21)
[2017-02-13] MEDS: NS + KCL 40 MEQ 1,000 ML IV SCH ×3 (05:36→22:37)
[2017-02-13] MEDS: SODIUM CHLORIDE 0.9% INJ SCH ×2 (09:20→22:37)
[2017-02-13] MEDS: PROTONIX IV SCH ×2 (09:20→22:37)
[2017-02-13] MEDS: LACTULOSE PO SCH ×2 (09:20→22:37)
[2017-02-13] MEDS: KLOR-CON PO SCH ×2 (09:20→22:37)
[2017-02-13] MEDS: THIAMINE 100 MG in NS 50 ML IV SCH (09:20)
--- NOTE | 2017-02-13 14:38 | PROGRESS NOTE ---
DATE: 02/13/2017 SUBJECTIVE: This patient states that he feels better but he is still feeling weak. He is not having hallucination and he is oriented x3. I had a really large conversation with this patient about alcoholism and detox center and after that discussion he decided to go ahead and try to go to a detox center for help. extension worker has been notified. She is on board. OBJECTIVE: Vital Signs: Temperature 98.6 degrees, pulse 106, respiratory rate 20, blood pressure 139/86, oxygen saturation 100% on room air. HEENT: Head normocephalic. No trauma. PERRLA. Neck: Supple. No JVD. No masses. Central trachea. Chest: Clear to auscultation. No wheezing. No rales. Abdomen: Soft, nontender, nondistended. No hepatosplenomegaly. Extremities: No edema. No clubbing. No cyanosis. Neurological: The patient is alert and oriented x3. Just generalized weakness. LABORATORY: No lab work done. ASSESSMENT AND PLAN: 1. Alcohol withdrawal with delirium tremens, prolonged course. He is improving. He is not having any more hallucination but he is weak, will continue with physical therapy. He wants to go now to a detox center because he states that he needs help. 2. Alcoholic hepatitis, liver enzymes are improving. Continue with the same management. 3. Alcohol abuse. This patient has been highly advised against alcohol abuse. I will continue with daily cessation education. He seems to understand this. 4. Constipation. Continue with lactulose after GI. 5. Generalized weakness. Continue with physical therapy. 6. Anemia. Continue with multivitamin and Icar-C twice a day. cc: Enoc Colon MD
[2017-02-14] MEDS: CARAFATE LIQUID PO SCH ×4 (02:33→22:19)
[2017-02-14 06:30] LABS: AGAP 12; BUN 4 mg/dL (8-22); CALCIUM 9.4 mg/dL (8.8-10.2); CHLORIDE 101 mmol/L (98-107); COSMO 272; POTASSIUM 4.4 mmol/L (3.5-5.1); SODIUM 138 mmol/L (136-145); TCO2 25 mmol/L (25-35)
[2017-02-14] MEDS: M.V.I.-12 10 ML, FOLIC ACID 1 MG, MAGNESIUM SULFATE 1 GM, THIAMINE 100 MG in NS 1,000 ML IV SCH (09:00)
[2017-02-14] MEDS: PROTONIX IV SCH ×2 (09:33→22:19)
[2017-02-14] MEDS: FOLIC ACID PO SCH (09:33)
[2017-02-14] MEDS: SODIUM CHLORIDE 0.9% INJ SCH ×2 (09:33→22:19)
[2017-02-14] MEDS: VITAMIN B-1 PO SCH (09:33)
[2017-02-14] MEDS: LACTULOSE PO SCH ×2 (09:34→22:19)
--- NOTE | 2017-02-14 11:53 | PROGRESS NOTE ---
DATE: 02/14/2017 SUBJECTIVE: This patient states that he is feeling better but he is weak. Physical therapy is on board and he is improving, but he cannot walk by himself, probably in 1 or 2 more days. The plan is to send this patient home and [facility] evaluated this patient and they will take care of this patient as an outpatient. OBJECTIVE: Vital Signs: Temperature 98.3 degrees, pulse 91, respiratory rate 20, blood pressure 136/89, oxygen saturation 99 on room air. HEENT: Head normocephalic. No trauma. PERRLA. Neck: Supple. JVD no masses. Central trachea. Chest: Clear to auscultation. No wheezing. No rales. Abdomen: Soft, nontender, nondistended. No hepatosplenomegaly. Extremities: No edema. No clubbing. No cyanosis. Neurological: The patient is alert and oriented x3. No focal neurological deficits. LABORATORY: WBC 138. Potassium 4.4, chloride 101, bicarbonate 25, BUN 4, creatinine 0.4, glucose 96, calcium 9.4. ASSESSMENT AND PLAN: 1. Alcohol withdrawal with delirium tremens, prolonged course. He is getting much better. He is not having any more hallucinations but he is weak. Physical therapy is on board. I do believe that he can go home and follow up with [facility] as an outpatient. They already evaluated this patient. Probably he will be able to go home in a couple days. 2. Alcoholic hepatitis. Liver enzymes are improving. We will continue with the same management. I already asked for a CMP for tomorrow. 3. Alcohol abuse. This patient has been highly advised against alcohol use. I will continue with daily cessation education. It looks like he wants to quit. 4. Constipation. Continue with lactulose per the GI. 5. Generalized weakness. Continue physical therapy. 6. Anemia. Continue with multivitamin and Icar C twice a day. PLAN: This patient is getting much better. I think in 1 or 2 days he is going to be able to go home and follow up with [facility] as an outpatient. I have the stopped his fluids because he is tolerating p.o. I changed his thiamine and folic acid from IV to p.o. as well. cc: Enoc Colon MD
--- NOTE | 2017-02-14 15:20 | PROGRESS NOTE ---
DATE: 02/14/2017 SUBJECTIVE: The patient currently resting in bed. He is feeling better. He denies any fevers, rigors, chills. Denies any nausea, vomiting, or diarrhea. Denies any vomiting blood or blood in the stools. He is getting ready to be discharged home likely today or tomorrow. I spoke with Dr. Mcgovern about that. OBJECTIVE: Vital signs: Temperature 98.8, pulse rate of 97, respiratory rate 20, blood pressure 115/72, saturating 100% on room air. General: He is lying in bed in no distress. HEENT: Mild pallor. No icterus. Neck is supple. Abdomen is soft, nontender, nondistended. Bowel sounds. No rebound. Extremities: No cyanosis, clubbing, or edema. Neurologic: He is alert, awake, and answers questions. LABORATORY DATA: His sodium is 138, potassium 4.4, chloride 101, bicarb 25, anion 12. BUN of 4, creatinine 0.4, glucose of 96. Calcium 9.4. Total bilirubin is 1.04. AST 103 , ALT 53. Alkaline phosphatase is 213. Total protein 5.4, albumin of 2.5. . IMPRESSION AND PLAN: 1. Alcoholic hepatitis. Liver enzymes improving. We will check his liver enzymes as an outpatient in 1 month. He will return to clinic in 1 month for that. The patient was counseled to quit alcohol completely. The patient will continue multivitamins once daily. 2. Constipation. He will continue on lactulose 30 mL once or twice daily for constipation. 3. Alcohol withdrawal delirium tremens. Prolonged course. He is getting better. Plan is to follow with [facility] as an outpatient. 4. Generalized weakness. He continues on physical therapy. 5. Anemia. Continue on multivitamin and Iron C b.i.d. The patient most likely will be getting discharged home soon. If he continues to be anemic, then we will plan to perform endoscopic to evaluate further. The above plans were relayed to Dr. Mcgovern and the patient and all questions answered. cc: MD Enoc Whiting MD [facility]
[2017-02-14] MEDS: NS + KCL 40 MEQ 1,000 ML IV SCH (16:12)
--- NOTE | 2017-02-14 16:49 | PROGRESS NOTE ---
DATE: 02/09/2017 SUBJECTIVE: Patient had a good night. Resting comfortably. Feeling weak, however. He has a problem walking. He is being moved to the regular floor. OBJECTIVE: Vital Signs: Temp 98 degrees, pulse 82, respiratory rate 24, blood pressure 105/67. HEENT: PERRLA. Mild conjunctival pallor. Neck: Supple. Heart: Normal first and second heart sounds. Lungs: Clear. Abdomen: Soft. LABORATORY STUDIES: Hematocrit is stable at 33, potassium is low at 3.0. LFTs are coming down. IMPRESSIONS AND PLAN: 1. Delirium tremens which have improved. We have seen that he is switched to Librium. 2. Alcoholism. 3. Erosive gastritis and duodenitis. Continue PPI. 4. Anemia. Continue iron and vitamin C. 5. Alcoholic hepatitis. We will monitor this over the weeks. 6. Weakness. Continue physical therapy. cc: Khurram Sullivan MD
--- NOTE | 2017-02-14 16:50 | PROGRESS NOTE ---
DATE: 02/11/2017 SUBJECTIVE: He says he is feeling much better. Sitting up at the edge of the bed. Smiling for the first time. He is getting a little stronger and eating better. OBJECTIVE: Vital signs: Temp 98 degrees, pulse 90, respirations 20, blood pressure 134/81. Lungs: Clear. Heart: Normal first and second heart sounds. Abdomen: No organomegaly. No ascites. Bowel sounds are normal. LABORATORY DATA: Positive for hypokalemia. IMPRESSIONS AND PLAN: 1. Alcohol withdrawal, resolved. We will taper the Librium. 2. Transaminitis from acute alcoholic hepatitis. Viral studies are negative. This has continued to come down. 3. Weakness in the lower extremities. Continue physiotherapy. 4. Gastritis and duodenitis and anemia, being stable. Continue GI prophylaxis. 5. Hyperkalemia. His potassium is changed to twice a day and should improve. -6 cc: Khurram Sullivan MD
--- NOTE | 2017-02-14 16:50 | PROGRESS NOTE ---
DATE: 02/13/2017 SUBJECTIVE: Feels a lot better. His weakness is also improving. He says he is getting his physiotherapy. He does not have any hallucinations or delirium tremens. Oriented x3. Patient has been educated for alcoholism and detox. Dr. Enoc Colon also has talked to him and he has agreed to join a detox center. Social service is consulted. OBJECTIVE: Vital signs: Temp 98.6 degrees, pulse 90, respiration rate 20, blood pressure 130/80, O2 saturation 100% on room air. HEENT: Mild conjunctival pallor present. Neck: Supple. Trachea midline. Heart: Normal first and second heart sounds. Lungs: Clear. Abdomen: Soft, nontender. Neurological: Alert and oriented. No signs of delirium. Extremities: Weakness in the lower extremities. IMPRESSIONS AND PLAN: 1. Alcoholic withdrawal with delirium tremens. Has improved to near normal. 2. Alcohol detox education. computing services director is on board. Patient agreed and family agreed that he will go into detox. 3. Alcoholic hepatitis, improving. 4. Constipation. We will continue the lactulose. 5. Generalized weakness. Continue physical therapy. 6. Anemia. Continue multivitamin and Icar C twice daily. There is no sign of any active GI blood loss. We will continue to follow. -3 cc: Khurram Sullivan MD
--- NOTE | 2017-02-14 16:50 | PROGRESS NOTE ---
DATE: 02/10/2017 SUBJECTIVE: Feeling better. Eating a little better but feels quite weak though. OBJECTIVE: Vital signs: Temp 97.8 degrees, pulse 78, respirations 20, blood pressure 127/86. HEENT: Conjunctival pallor present. Neck: Supple. Trachea midline. Heart: Normal. Lungs: Normal. Abdomen: Soft. Skin: Warm and dry. LABORATORY DATA: Potassium is still low at 3.8. Creatinine is normal. Liver enzymes are coming down. Hepatitis panel is completely negative. IMPRESSIONS AND PLAN: 1. Alcoholism withdrawal, delirium tremens. He is better, weak. I talked to the nurse and he is getting Librium 50 three times a day. We will reduce it to 25 twice a day. 2. Erosive gastritis and duodenitis. Hematocrit is stable. 3. Hypokalemia. Potassium is being replaced. 4. Weakness in the lower extremities. I talked to the family. Will get physiotherapy involved. -3 cc: Khurram Sullivan MD
--- NOTE | 2017-02-14 17:22 | PROGRESS NOTE ---
DATE: 02/09/2017 SUBJECTIVE: Patient had a good night, resting comfortably. Feeling weak, however. He has a problem walking. He is being moved to the regular floor. OBJECTIVE: Vital Signs: Temperature 98 degrees, pulse 82, respiratory rate 24, blood pressure 105/67. HEENT: PERRLA. Mild conjunctival pallor. Neck: Supple. Heart: Normal first and second heart sounds. Lungs: Clear. Abdomen: Soft. LABORATORY STUDIES: Hematocrit is stable at 33, potassium is low at 3. LFTs are coming down. IMPRESSION AND PLAN: 1. Delirium tremens which have improved. We have seen that he is switched to Librium. 2. Alcoholism. 3. Erosive gastritis and duodenitis. Continue proton pump inhibitor. 4. Anemia. Continue iron and vitamin C. 5. Alcoholic hepatitis. We will monitor this over the weeks. 6. Weakness. Continue physical therapy. cc: Khurram Sullivan MD
--- NOTE | 2017-02-14 17:23 | PROGRESS NOTE ---
DATE: 02/10/2017 SUBJECTIVE: Feeling better. Eating a little better, but feels quite weak though. OBJECTIVE: Vital signs: Temperature 97.8 degrees, pulse 78, respirations 20, blood pressure 127/86. HEENT: Conjunctival pallor present. Neck: Supple. Trachea midline. Lungs: Normal. Heart: Normal. Abdomen: Soft. Skin: Warm and dry. LABORATORY DATA: Potassium is still low at 3.8, creatinine is normal. Liver enzymes are coming down. Hepatitis panel is completely negative. IMPRESSION AND PLAN: 1. Alcoholism withdrawal, delirium tremens. He is better, weak. Talked to the nurse and he is getting Librium 50, 3 times a day. We will reduce it to 25 twice a day. 2. Erosive gastritis and duodenitis. The hematocrit is stable. 3. Hypokalemia. Potassium is being replaced. 4. Weakness in the lower extremities. I talked to the family. We will get physiotherapy involved. -9 cc: Khurram Sullivna MD
--- NOTE | 2017-02-14 17:23 | PROGRESS NOTE ---
DATE: 02/11/2017 SUBJECTIVE: He says he is feeling much better. Sitting up at the edge of the bed. He is smiling for the first time. He is getting a little stronger and eating better. OBJECTIVE: Vital signs: Temperature 98 degrees, pulse 90, respirations 20, blood pressure 134/81. Lungs: Are clear. Heart: Normal first and second heart sounds. Abdomen: No organomegaly. No ascites. Bowel sounds are normal. LABORATORY DATA: Positive for hypokalemia. IMPRESSION AND PLAN: 1. Alcohol withdrawal, resolved. We will taper the Librium. 2. Transaminitis from acute alcoholic hepatitis. Viral studies are negative. This has continued to come down. 3. Weakness in the lower extremities. Continue physiotherapy. 4. Gastritis and duodenitis and anemia, being stable. Continue GI prophylaxis. 5. Hypokalemia. His potassium is changed to twice a day and should improve. -5 cc: Khurram Sullivan MD
--- NOTE | 2017-02-14 17:24 | PROGRESS NOTE ---
DATE: 02/13/2017 SUBJECTIVE: Feels a lot better. His weakness is also improving. He says he is getting his physiotherapy. He does not have any hallucinations or serious tremors. Oriented x3. Patient had been educated for alcoholism and detox and Dr. Enoc Mcgovern also has talked to him and he agreed to join a detox center. Social Service is consulted. OBJECTIVE: Vital signs: Temperature 98.6 degrees, pulse 90, respirations 20, blood pressure 130/80, O2 saturation 100% on room air. HEENT: Mild conjunctival pallor present. Neck: Supple. Trachea midline. Heart: Normal 1st and 2nd heart sounds. Lungs: Are clear. Abdomen: Soft, nontender. Neurological: Alert and oriented. No signs of delirium now. Extremities: Weakness in the lower extremities. IMPRESSION AND PLAN: 1. Alcoholic withdrawal with delirium tremens, has improved to near normal. 2. Alcohol detox education and the neonatal social worker is on board. Patient agreed and family agreed that he will go into detox. 3. Alcoholic hepatitis improving. 4. Constipation. We will continue the lactulose. 5. Generalized weakness. Continue physical therapy. 6. Anemia. Continue multivitamin and Icar C twice daily. There is no sign of any active GI blood loss. We will continue to follow. -9 cc: Khurram Sullivan MD
[2017-02-15] MEDS: CARAFATE LIQUID PO SCH ×4 (04:38→21:40)
[2017-02-15 05:40] LABS: MANUAL DIFF NEEDED? NO
[2017-02-15 05:48] LABS: BASO% 0.4 % (0.0-0.8); EOS# 0.15 X1000 (0.0-0.7); EOS% 2.8 % (0.0-10.0); HEMATOCRIT 32.4 % (42.0-52.0); HEMOGLOBIN 10.7 g/dL (14.0-18.0); IMM GRAN# 0.03 X1000 (0.0-0.04); IMM GRAN% 0.6 % (0.0-0.5); LYMPH# 1.58 X1000 (1.2-3.4); MCH 31.7 PG (27-31); MCV 95.9 FL (81-99); MONO% 12.9 % (1.7-9.3); NEUT% 54.3 % (42.2-75.2); PLT 333 X1000 (130-400); RBC 3.38 XMIL (4.7-6.1)
[2017-02-15 06:05] LABS: AGAP 13; ALBUMIN 3.1 g/dL (3.5-5.0); ALKALINE PHOSPHATASE 211 U/L (32-122); BUN 4 mg/dL (8-22); CALCIUM 9.2 mg/dL (8.8-10.2); CHLORIDE 101 mmol/L (98-107); COSMO 272; GOT 111 U/L (10-34); GPT 55 U/L (10-44); POTASSIUM 4.2 mmol/L (3.5-5.1); SODIUM 138 mmol/L (136-145); TCO2 24 mmol/L (25-35); TOTAL BILIRUBIN 1.06 mg/dL (0.20-1.00); TOTAL PROTEIN 6.4 g/dL (6.3-8.3)
[2017-02-15] MEDS: LACTULOSE PO SCH ×2 (09:21→21:40)
[2017-02-15] MEDS: VITAMIN B-1 PO SCH (09:21)
[2017-02-15] MEDS: SODIUM CHLORIDE 0.9% INJ SCH ×2 (09:21→21:40)
[2017-02-15] MEDS: PROTONIX IV SCH ×2 (09:21→21:40)
[2017-02-15] MEDS: FOLIC ACID PO SCH (09:21)
[2017-02-15] MEDS: NS + KCL 40 MEQ 1,000 ML IV SCH ×2 (09:22→15:04)
--- NOTE | 2017-02-15 16:12 | PROGRESS NOTE ---
DATE: 02/15/2017 SUBJECTIVE: This patient states that he is feeling better but he is still having weakness. He has been refusing to go to a rehab center but at this point he cannot even walk by himself to the bathroom. The plan is to keep this patient 1 more night so he can get physical therapy twice today and probably tomorrow morning. I will try to get a walker for him. The plan is to go home and [facility] will see this patient as an outpatient. They already evaluated this patient and we need to notify them once he is about to be discharged. OBJECTIVE: Vital Signs: Temperature 98.4 degrees, pulse 90, respiratory rate 18, blood pressure 103/74, oxygen saturation 99 on room air. HEENT: Head normocephalic. No trauma. PERRLA. Neck: Supple. No JVD. No masses. Central trachea. Chest: Clear to auscultation. No wheezing. No rales. Abdomen: Soft, nontender, nondistended. No hepatosplenomegaly. Extremities: No edema. No clubbing. No cyanosis. Neurological: The patient is alert and oriented x3. No focal deficits but generalized weakness. LABORATORY: WBC 5.4, hemoglobin 10.7, hematocrit. 32.4, platelet 333,000. Sodium 138, potassium 4.2, chloride 101, bicarbonate 24, BUN 4, creatinine 0.5, glucose 91, calcium 9.2. Albumin 3.1. ASSESSMENT AND PLAN: 1. Alcohol withdrawal with delirium tremens, prolonged course. He is much better. He is not having more hallucination but he has severe weakness. Physical therapy on board. We will try to get physical therapy twice a day. We already set up followup with [facility] as an outpatient. They already evaluated this patient. Probably he will go home tomorrow morning. 2. Alcoholic hepatitis. Liver enzymes are stable. Continue with the same management for now. 3. Alcohol abuse. This patient has been highly advised against alcohol abuse. I will continue with daily cessation education. It looks like he wants to quit drinking. 4. Constipation. Continue with lactulose as per GI. 5. Generalized weakness. Continue physical therapy twice a day as above. 6. Anemia. Continue with multivitamin and Icar C twice a day. cc: Enoc Colon MD
--- NOTE | 2017-02-15 16:50 | PROGRESS NOTE ---
DATE: 02/15/2017 SUBJECTIVE: Patient currently resting in bed. He complains of feeling weak. He was seen by physical therapist who advised home health with physical therapy at home. He is going to be discharged today. He denies any fevers, rigors, chills. Denies any nausea, vomiting, or diarrhea. OBJECTIVE: Vital signs: Temperature of 98.4 degrees, pulse rate of 90, respiratory rate 18, blood pressure 103/74, saturating 98% on room air. General appearance: Moderately nourished, sitting in chair, in no acute distress. HEENT: Mild pallor. No icterus. Neck: Supple. Abdomen: Soft, nontender, nondistended. Bowel sounds regular. No rebound. Extremities: No cyanosis or clubbing. Mild bilateral lower extremity edema noted. Neurologic: He is alert, awake, oriented. LABS: Hemoglobin and hematocrit is 10.7 and 32.4, white count of 5.4, platelet count of 333,000, MCV of 95.9. Sodium 138, potassium 4.2, chloride 101, bicarb 24, anion gap 13, BUN of 4, creatinine 0.5, glucose of 91, calcium 9.2, total bilirubin is 1.06, AST 111, ALT 55, alkaline phosphatase 211, total protein 6.4, albumin of 3.1. IMPRESSION/PLAN: 1. Alcoholic hepatitis, improving liver enzymes. Will follow up in the clinic in 1 month and at that time, we will reevaluate the liver enzymes. 2. Anemia. He will need outpatient EGD and colonoscopy if the anemia persists. Will give multivitamin once daily. 3. Constipation. Will give him lactulose once or twice daily for constipation. 4. Delirium tremens, prolonged course from alcohol withdrawal. He is planning to seek advice from [facility] as an outpatient. 5. Generalized weakness. He continues in physical therapy and he will be advised to be on home health with physical therapy at home. 6. Above plan discussed with the patient and Dr. Colon. cc: MD Tr Banks MD
[2017-02-16] MEDS: CARAFATE LIQUID PO SCH ×2 (03:07→08:51)
[2017-02-16] MEDS: NS + KCL 40 MEQ 1,000 ML IV SCH (03:07)
[2017-02-16 05:59] LABS: MANUAL DIFF NEEDED? NO
[2017-02-16 06:06] LABS: BASO% 0.2 % (0.0-0.8); EOS# 0.14 X1000 (0.0-0.7); HEMOGLOBIN 10.1 g/dL (14.0-18.0); LYMPH# 1.42 X1000 (1.2-3.4); LYMPH% 30.3 % (20.5-51.1); MCH 32.3 PG (27-31); MCHC 33.7 g/dL (33-37); MCV 95.8 FL (81-99); MONO# 0.77 X1000 (0.11-0.59); MONO% 16.5 % (1.7-9.3); MPV 10.1 FL (7.4-10.4); PLT 317 X1000 (130-400); RBC 3.13 XMIL (4.7-6.1)
[2017-02-16 06:19] LABS: AGAP 13; ALBUMIN 2.8 g/dL (3.5-5.0); ALKALINE PHOSPHATASE 193 U/L (32-122); BUN 3 mg/dL (8-22); CALCIUM 8.7 mg/dL (8.8-10.2); CHLORIDE 102 mmol/L (98-107); COSMO 277; GOT 102 U/L (10-34); GPT 51 U/L (10-44); POTASSIUM 3.8 mmol/L (3.5-5.1); SODIUM 141 mmol/L (136-145); TCO2 26 mmol/L (25-35); TOTAL BILIRUBIN 0.89 mg/dL (0.20-1.00); TOTAL PROTEIN 6.1 g/dL (6.3-8.3)
[2017-02-16] MEDS: SODIUM CHLORIDE 0.9% INJ SCH (08:51)
[2017-02-16] MEDS: LACTULOSE PO SCH (08:52)
[2017-02-16] MEDS: VITAMIN B-1 PO SCH (08:52)
[2017-02-16] MEDS: PROTONIX IV SCH (08:52)
[2017-02-16] MEDS: FOLIC ACID PO SCH (08:52)
[2017-02-16] MEDS: ATIVAN IV PRN (08:57)
[2017-02-16 11:16] VITALS: BP 132/55
[2017-02-16] MEDS ORDERED: CARAFATE PO SCH (13:00)
--- NOTE | 2017-02-16 16:35 | DISCHARGE SUMMARY ---
ADMISSION DATE: 02/05/2017 DISCHARGE DATE: 02/16/2017 CONSULTATIONS: Dr. Olivas with Gastroenterology. PERTINENT PROCEDURES: 1. Head CT showed no hemorrhage. Chronic bilateral maxillary sinusitis. 2. Abdominal ultrasound showed fatty infiltration of the liver. 3. EGD, performed by Dr. Sullivan, showed erosive antral gastritis, duodenitis. No Cesia- Peña tear. No esophageal varices. No fresh blood or blood seen in the stomach. DISCHARGE DIAGNOSES: 1. Alcohol withdrawal with delirium tremens, prolonged course. His hallucinations have subsided. He did have severe weakness. Physical Therapy was on board. He has talked to [facility] for outpatient and has been evaluated. He is being discharged to follow up with [facility]. 2. Alcoholic hepatitis. Liver enzymes are stable. Continue to follow with Gastroenterology. 3. Alcohol abuse. The patient has been highly advised against alcohol abuse, as well as daily cessation education. The patient does appear to want to quit drinking. He is to go into [facility] as an outpatient. 4. Constipation. Continue the lactulose as per Gastroenterology. 5. Generalized weakness. He continue with physical therapy as inpatient. Improved. The patient will be going home with a walker. 6. Anemia. The patient will continue with multivitamin and Icar-C twice a day. The patient will follow up with Gastroenterology in one month to re-evaluate for an outpatient esophagogastroduodenoscopy and colonoscopy, as well as re-evaluate his liver enzymes. HOSPITAL COURSE: Mr. Sterling is a 41-year-old male, with unremarkable past medical history, with exception of alcohol abuse, who came to the ED complaining of epigastric pain, nausea and vomiting. He reported for 2 weeks he was having on- and off-again vomiting 2 to 3 times per day, as well as, within the last week, some blood. He complained of epigastric heartburn-type pain that was also on and off for 2 weeks as well. No fever, no chills. No diarrhea, no constipation. He did admit that the last time he drank was 2 days prior to his admission. In the ER he had 2 seizures, and he was given 2 mg of Ativan. He was admitted for alcohol withdrawal. They did check a CT of the head. It was negative. He was started on aggressive IV fluid resuscitation, as well as thiamine and folate banana bag. For his GI bleed, GI was consulted. Monitored his hemoglobins and hematocrits closely. He was started on a PPI b.i.d. He did have abnormal liver function test. Did do an abdominal ultrasound of his abdomen. Continued to replete his electrolytes. His ultrasound did show fatty infiltration of the liver. He was also started on Carafate, and monitored closely for delirium tremens secondary to him being a heavy alcohol drinker for many years. He did undergo an EGD with Dr. Sullivan that showed erosive antral gastritis, duodenitis. No Cesia-Peña tear. No esophageal varices. No fresh or old blood seen in the stomach. Unfortunately, Mr. Sterling did deteriorate and went into delirium tremens, requiring 4-point restraints, benzodiazepines and phenobarbital. He had also been on oral Librium. Mr. Sterling was able to come off his 4-point restraints. He was more awake and alert, resting comfortably. He was able to sit up in the bed and start a regular diet. He was having some generalized weakness. Physical Therapy was able to come in and work with him. He was moved to a regular room. [employer] was brought in for options regarding his weakness, Home Health with physical therapy versus rehab. He was open to speaking with [facility] about detox rehab. We continued with daily alcohol abuse cessation education. We did bump up his physical therapy to twice a day. He will go home with a walker, and he will follow up outpatient with [facility]. He has tolerated his p.o. well. He did have a bout of constipation, and he was started on lactulose. He will continue with that. Mr. Sterling's liver enzymes continued to improve. He will follow up with GI in 1 month, and they will re-evaluate his liver enzymes at that time. They will also re- evaluate his need for outpatient EGD and colonoscopy if his anemia persists. Continue on MVI daily, as well as lactulose for constipation. VITAL SIGNS: At time of discharge, temperature is 98.3 degrees, heart rate 65, respirations 20, blood pressure 132/55, O2 is 97% on room air. DISCHARGE DIET: Regular. DISCHARGE MEDICATIONS: 1. Folic acid 1 mg p.o. daily. 2. Lactulose 30 mL p.o. b.i.d. p.r.n. 3. Protonix 40 mg p.o. daily. 4. Carafate 1 g p.o. 4 times a day. 5. Vitamin B1 of 100 mg p.o. daily. FOLLOWUP: Mr. Sterling is being discharged home with a walker. He will follow up with [facility] as an outpatient. He will follow up with GI in 1 month for repeat liver enzymes, and re-evaluate if he needs an EGD or colonoscopy if his anemia persists. He will take all new medications as prescribed. He has been educated daily on alcohol abstinence and the importance of his cessation. He can return to the ED for any worsening of symptoms. DISCHARGE TIME: 30 minutes. Dictated by GIULIANA Bennett for Enoc Colon MD cc: Enoc Colon MD
[2017-02-16] MEDS ORDERED: PROTONIX PO SCH (21:00)
== END 2017-02-16 12:27 | disposition home or self-care (01) ==
LOC: ED 03:11 → SUATTDRO 04:39 → EDIPHOLD 04:39 → ICU 06:38 → 4N 02-09 09:44
PROVIDERS: ATTEND Internal Medicine